=== PATIENT | female | born 1980 | race Caucasian/White ===

== ENCOUNTER 2021-05-04 19:50 | Emergency (ER) | payer OTHER | END 2021-05-04 20:31 | disposition home or self-care (01) | LOC: NAV ERS 19:50 | DX: S30.1XXA Contusion of abdominal wall, initial encounter (principal); V50.5XXA Driver of pick-up truck or van injured in collision with pedestrian or animal in traffic accident, initial encounter; Z79.899 Other long term (current) drug therapy; Z79.84 Long term (current) use of oral hypoglycemic drugs; E11.9 Type 2 diabetes mellitus without complications; Z79.4 Long term (current) use of insulin | CPT/HCPCS: 99284; G0390 ==